=== PATIENT | male | born 1960 | race Caucasian/White ===

== ENCOUNTER 2017-02-12 07:05 | Day surgery (SDC) | payer BC ==
[2017-02-12] MEDS ORDERED: Sodium Chloride 0.9% 10 ML Syringe FLUSH PRN (07:45)
[2017-02-12] MEDS ORDERED: Lactated Ringers 1,000 ML IV SCH (07:45)
[2017-02-12] MEDS ORDERED: Midazolam 1 MG/ML 2 ML SDV IV ONE (09:15)
[2017-02-12] MEDS ORDERED: Lidocaine 2% 100 MG/5 ML Syringe IVPUSH ONE (09:15)
[2017-02-12] MEDS ORDERED: Propofol 200 MG/20 ML SDV IV ONE (09:15)
--- NOTE | 2017-02-12 09:44 | PCM.OPNOTE ---
- General Post-Op/Procedure Note Date of Surgery/Procedure: 02/12/17 Operative Procedure(s): egd with cold forcep biopsy Findings: gastritis and esophagitis irregular z line Pre Op Diagnosis: chronic cough Post-Op Diagnosis: gastritis and esophagitis. irregular z line Anesthesia Technique: MAC Primary Surgeon: Wyatt Mcdowell Anesthesia Provider: Naima Higgins Pathology: stomach and esophagus Complications: None Condition: Good Free Text/Narrative:: see dictation
--- NOTE | 2017-02-12 10:16 | OR ---
DATE OF OPERATION: 02/12/2017 SURGEON: Wyatt Mcdowell MD PROCEDURE PERFORMED: Esophagogastroduodenoscopy with cold forceps biopsy. PREOPERATIVE DIAGNOSIS: History of chronic cough. POSTOPERATIVE DIAGNOSIS: Gastritis and reflux esophagitis with an irregular Z- line. INDICATIONS FOR PROCEDURE: This is a 56-year-old white male, who is referred with a history of chronic cough. Work up today has been negative and has been felt that his symptoms may be secondary to reflux disease. He was offered and accepted an upper endoscopy. PROCEDURE IN DETAIL: After an excellent IV sedation was administered, the bite block was inserted. Flexible endoscope was passed without difficulty down the patient's esophagus into the stomach. Stomach was insufflated. Scope was passed through the pylorus to the second portion of the duodenum and slowly withdrawn. Following findings were noted. Duodenum was unremarkable. Stomach, diffuse gastritis. In the area of the antrum, there was also a subcu lump which was easily mobile with pushing, appeared to be consistent with a lipoma. Attempts to biopsy were not successful. He did have biopsies taken of the gastric mucosa as well. GE junction measured approximately 40 cm. He has an irregular Z-line highly suggestive of reflux esophagitis. The remainder of his esophageal exam demonstrated erythema which was biopsied. This was complying to the lower 1/3rd of the esophagus. Remainder of the esophageal exam was unremarkable. The patient's vocal cords also appeared unremarkable on passing by and looking. Stomach was deflated. Scope was removed. The patient tolerated the procedure well and was taken to recovery room in good condition. /[id number] /MODL
[2017-02-12 11:14] VITALS: BP 129/86
== END 2017-02-12 10:41 | disposition home or self-care (01) ==
LOC: FB.SDS 07:05
PROVIDERS: ATTEND Surgery
DX: K29.50 Unspecified chronic gastritis without bleeding (principal); K22.70 Barrett's esophagus without dysplasia; F32.9 Major depressive disorder, single episode, unspecified; E78.00 Pure hypercholesterolemia, unspecified; Z88.1 Allergy status to other antibiotic agents; Z79.899 Other long term (current) drug therapy; Z98.890 Other specified postprocedural states
CPT/HCPCS: 43239; 88305; 88313; 88342; J2250; J2704; J7120